=== PATIENT | female | born 1930 | race Caucasian/White ===

== ENCOUNTER 2017-10-05 15:14 | Outpatient (CLI) | payer MEDICARE, BC | END 2017-10-05 15:15 | disposition home or self-care (01) | LOC: BICMAMMO 15:14 | PROVIDERS: ATTEND Family Medicine | DX: Z12.31 Encounter for screening mammogram for malignant neoplasm of breast (principal); Z80.3 Family history of malignant neoplasm of breast | CPT/HCPCS: 77063; 77067 ==

== ENCOUNTER 2018-10-08 10:41 | Outpatient (CLI) | payer MEDICARE, BC ==
--- NOTE | 2018-10-09 15:00 | MMO ---
FILMS COMPARED: The present examination has been compared to prior imaging studies performed at [facility] on 08/28/2013, 09/05/2014 and 06/27/2016. MAMMOGRAM FINDINGS: There are scattered fibroglandular densities. Finding 1: There are vascular calcifications seen in both breasts. Finding 2: There are benign appearing calcifications seen in both breasts. There are no suspicious masses, calcifications or areas of architectural distortion. IMPRESSION: ALL ABOVE FINDINGS ARE BENIGN. A ROUTINE FOLLOW-UP MAMMOGRAM IN 1 YEAR IS RECOMMENDED. ACR BI-RADS Category 2 - Benign finding
== END 2018-10-08 10:42 | disposition home or self-care (01) ==
LOC: BICMAMMO 10:41
PROVIDERS: ATTEND Family Medicine
DX: Z12.31 Encounter for screening mammogram for malignant neoplasm of breast (principal); R92.1 Mammographic calcification found on diagnostic imaging of breast
CPT/HCPCS: 77063; 77067

== ENCOUNTER 2018-10-09 18:55 | Inpatient (IN) | payer MEDICARE, BC ==
[2018-10-09 19:34] LABS: Hemoglobin 11.5 g/dL (12.0-16.0); Mean Corpuscular HGB CONC 33.3 g/dL (32.0-36.0); Mean Corpuscular Hemoglobin 28.7 pg (27.0-31.0); Mean Corpuscular Volume 86.2 fL (78.0-98.0); Mean Platelet Volume 7.6 fL (7.4-10.4); Platelet Count 230 thou/uL (130-400); RBC Distribution Width 12.8 % (11.5-14.5); White Blood Cell (WBC) Count 3.8 thou/uL (4.8-10.8)
[2018-10-09 19:48] LABS: Bilirubin Negative (Negative); Blood, Urine Negative (Negative); Clarity CLOUDY (Clear); Glucose, Urine (Dipstick) 100 mg/dL (Negative); Leukocyte Moderate (Negative); Nitrite Negative (Negative); Protein, Urine (Dipstick) 100 mg/dL (Neg-Trace); RBC/HPF 0-3 HPF (0-3); Specific Gravity, Urine 1.018 (1.002-1.036); WBC/HPF 21-50 HPF (0-3)
[2018-10-09 19:50] LABS: Pathc Cast-AUWi Flag 5.08 (0-2.49)
[2018-10-09 19:51] LABS: ALT (SGPT) 414 U/L (8-55); AST (SGOT) 966 U/L (5-34); Albumin 3.7 g/dL (3.4-4.8); Alkaline Phosphatase 358 U/L (40-150); Anion Gap 15 mmol/L (10-20); BUN (Urea Nitrogen) 18 mg/dL (9.8-20.1); Bilirubin, Total 0.7 mg/dL (0.2-1.2); Calc. Creatinine Clearance 0 mL/min (70-130); Carbon Dioxide 21 mmol/L (23-31); Chloride 100 mmol/L (98-107); Estimated GFR-MDRD 52; Globulin 3.3 g/dL (2.4-3.5); Glucose 305 mg/dL (83-110); Potassium 3.8 mmol/L (3.5-5.1); Sodium 132 mmol/L (136-145)
[2018-10-09 19:54] LABS: Band 23 % (5-11); Lymphocytes 2 % (21-51); MDiff Complete? YES; Metamyelocyte 1 % (0-0); Neutrophil 74 % (42-75); Platelet Morphology Comment Appears Adequate
[2018-10-09 19:56] LABS: Bacteria/HPF 1+ HPF (None Seen); Hyaline Casts/LPF NONE SEEN LPF (0-3 Hyaline); Manual Microscopic Reviewed? No Path Casts Seen; Renal Epithelial None Seen HPF (0-3); Transitional Epithelial 0-3 HPF (0-3)
--- NOTE | 2018-10-09 21:41 | ULT ---
RIGHT UPPER QUADRANT ULTRASOUND 10/09/18 HISTORY: Pain. COMPARISON: None. TECHNIQUE: Utilizing a multihertz transducer, sonographic imaging of the right upper quadrant is performed in th e longitudinal and transverse plane. FINDINGS: The head of the pancreas has a normal echotexture. The remainder of the pancreas is obscured by bowel gas. Main pancreatic duct diameter is 0.3 cm, upper normal. Hepatic parenchyma has a normal echotexture. No hepatic masses or intrahepatic biliary dilatation. Co ntour of the hepatic margin maintained. Right hepatic lobe measures 18.2 cm. In the upper pole of th e right kidney, there is anechoic focus measuring 5.0 x 5.3 x 5.1 cm. Exophytic cyst is favored. No h ydronephrosis. Right kidney measures 4.4 x 4.3 x 11.1 cm. Slightly prominent renal pelvis is noted. N o calyceal dilatation. Common bile duct diameter is 0.9 cm. No sonographic evidence of cholelithiasis , gallbladder wall thickening or pericholecystic fluid. Negative Fernando's sign. IMPRESSION: Prominent common bile. Common bile duct diameter is near the upper limits of normal given this patien t's age. As a conservative measure, MRCP or ERCP can be performed. POS: BAKARI
[2018-10-09] MEDS ORDERED: cefTRIAXone\\ROCEPHIN 2 GM VIAL ONE (21:42)
[2018-10-09] MEDS ORDERED: Acetaminophen 325 MG TAB PO PRN (23:12)
[2018-10-09] MEDS ORDERED: Ondansetron PF 4 MG/2 ML Vial IVP PRN (23:12)
[2018-10-09] MEDS ORDERED: Ondansetron ODT 4 MG TAB PO PRN (23:12)
[2018-10-09 23:17] LABS: Lactic Acid 2.6 mmol/L (0.5-2.2)
[2018-10-09 23:46] VITALS: BMI 23.1
[2018-10-10] MEDS: Sodium Chloride 0.9% 1,000 ML IV SCH ×3 (00:15→20:16)
[2018-10-10] MEDS ORDERED: Morphine 4 MG/ML VIAL SLOW IVP PRN (04:33)
[2018-10-10 05:50] LABS: #Lymphocytes 0.2 thou/uL (1.20-3.40); #Monocytes 0.3 thou/uL (0.11-0.59); #Neutrophils 2.6 thou/uL (1.40-6.50); %Eosinophils 0.4 % (0.0-10.0); %Lymphocytes 6.6 % (21.0-51.0); %Monocytes 9.7 % (0.0-10.0); %Neutrophils 83.3 % (42.0-75.0); Hemoglobin 9.6 g/dL (12.0-16.0); Mean Corpuscular HGB CONC 33.7 g/dL (32.0-36.0); Mean Corpuscular Hemoglobin 29.4 pg (27.0-31.0); Mean Corpuscular Volume 87.3 fL (78.0-98.0); Mean Platelet Volume 7.7 fL (7.4-10.4); Platelet Count 191 thou/uL (130-400); RBC Distribution Width 12.8 % (11.5-14.5); Red Blood Cell (RBC) Count 3.26 mill/uL (4.20-5.40); White Blood Cell (WBC) Count 3.1 thou/uL (4.8-10.8)
[2018-10-10 06:26] LABS: Anion Gap 11 mmol/L (10-20); BUN (Urea Nitrogen) 15 mg/dL (9.8-20.1); Calc. Creatinine Clearance 47 mL/min (70-130); Calcium 8.3 mg/dL (7.8-10.44); Carbon Dioxide 21 mmol/L (23-31); Chloride 104 mmol/L (98-107); Estimated GFR-MDRD 71; Glucose 254 mg/dL (83-110); Potassium 3.8 mmol/L (3.5-5.1); Sodium 132 mmol/L (136-145)
[2018-10-10] MEDS ORDERED: Prevnar 13-Val Conj/PF 0.5 ML SYRINGE IM ONE (09:00)
[2018-10-10] MEDS: Enoxaparin Sodium 40 MG/0.4 ML SYRINGE SC SCH (09:50)
--- NOTE | 2018-10-10 12:37 | PDOC.PN ---
- Subjective Encounter Start Date: 10/10/18 Encounter Start Time: 08:00 Subjective: no abd pain or nausea or vomiting -: feels better -: she thinks its macrobid which caused the whole thing - Objective Resuscitation Status - Order Detail: 10/09/18 23:12 Resuscitation Status Routine Resuscitation Status: FULL: Full Resuscitation MAR Reviewed: Yes Vital Signs & Weight: Vital Signs (12 hours) Temp Pulse Resp BP Pulse Ox 10/10/18 11:30 98.4 F 75 18 121/68 96 10/10/18 08:15 97.7 F 77 12 104/60 96 10/10/18 04:11 99.2 F 86 12 137/64 95 Weight Weight 130 lb 8 oz I&O: 10/09/18 10/10/18 10/11/18 06:59 06:59 06:59 Intake Total 700 Balance 700 Result Diagrams: 10/10/18 05:04 10/10/18 05:04 Additional Labs: Accuchecks 10/09/18 19:02 POC Glucose 292 H Phys Exam - Physical Examination HEENT: PERRLA, moist MMs Neck: no JVD, supple Respiratory: no wheezing, no rales Cardiovascular: RRR, no significant murmur Gastrointestinal: soft, non-tender, no distention, positive bowel sounds no rigidity or guarding Musculoskeletal: no edema, pulses present Neurological: non-focal, moves all 4 limbs Psychiatric: normal affect, A&O x 3 Dx/Plan (1) Acute pancreatitis Code(s): K85.90 - ACUTE PANCREATITIS WITHOUT NECROSIS OR INFECTION, UNSP Status: Suspected Qualifiers: Pancreatitis type: unspecified pancreatitis type Acute pancreatitis complication: no infection or necrosis Qualified Code(s): K85.90 - Acute pancreatitis without necrosis or infection, unspecified (2) Elevated LFTs Code(s): R94.5 - ABNORMAL RESULTS OF LIVER FUNCTION STUDIES Status: Acute (3) UTI (urinary tract infection) Status: Acute Qualifiers: Urinary tract infection type: acute cystitis Hematuria presence: without hematuria Qualified Code(s): N30.00 - Acute cystitis without hematuria (4) Anemia Code(s): D64.9 - ANEMIA, UNSPECIFIED Status: Chronic Qualifiers: Anemia type: unspecified type Qualified Code(s): D64.9 - Anemia, unspecified (5) DM type 2 (diabetes mellitus, type 2) Status: Chronic Qualifiers: Diabetes mellitus water server insulin use: without custodial use Diabetes mellitus complication status: with unspecified complications Qualified Code(s) : E11.8 - Type 2 diabetes mellitus with unspecified complications (6) HTN (hypertension) Code(s): I10 - ESSENTIAL (PRIMARY) HYPERTENSION Status: Chronic Qualifiers: Hypertension type: essential hypertension Qualified Code(s): I10 - Essential (primary) hypertension - Plan await cultures, is on ceftriaxone for uti -: mrcp to r/o choledocholithiasis, t.bili is normal -: abd is benign, last bm was yesterday, no diarrhea -: GI opinion, ?sepsis or med induced elevated lft's/pancreatitis -: iv hydration, will start liq diet after mrcp * . Review of Systems - Medications/Allergies Allergies/Adverse Reactions: Allergies Allergy/AdvReac Type Severity Reaction Status Date / Time Sulfa (Sulfonamide AdvReac Mild Verified 10/09/18 23:41 Antibiotics) Medications: Current Medications Acetaminophen (Tylenol) 650 mg PO Q4H PRN PRN Reason: Headache/Fever/Mild Pain (1-3) Last Admin: 10/10/18 03:03 Dose: 650 mg Amlodipine Besylate (Norvasc) 5 mg PO DAILY [facility] Aspirin (Ecotrin) 81 mg PO DAILY [facility] Enoxaparin Sodium (Lovenox) 40 mg SC 0900 [facility] Last Admin: 10/10/18 09:50 Dose: 40 mg Hydrochlorothiazide (Hydrochlorothiazide) 12.5 mg PO DAILY [facility] Ceftriaxone Sodium 1 gm/ (Sodium Chloride) 100 mls @ 200 mls/hr IVPB Q24HR [facility] Sodium Chloride (Normal Saline 0.9%) 1,000 mls @ 100 mls/hr IV .Q10H [facility] Last Admin: 10/10/18 00:15 Dose: 1,000 mls Morphine Sulfate (Morphine) 2 mg SLOW IVP Q4H PRN PRN Reason: Severe Pain (7-10) Nebivolol (Bystolic) 5 mg PO DAILY [facility] Ondansetron HCl (Zofran Odt) 4 mg PO Q6H PRN PRN Reason: Nausea/Vomiting Ondansetron HCl (Zofran) 4 mg IVP Q6H PRN PRN Reason: Nausea/Vomiting Valsartan (Diovan) 160 mg PO DAILY [facility]
--- NOTE | 2018-10-10 16:11 | CON ---
DATE OF CONSULTATION: 10/10/2018 REASON FOR CONSULTATION: Elevation of liver enzymes. HISTORY: Ms. Knox is an 88-year-old woman, who was admitted to the ER last night with severe weakness. She initially presented to her primary care physician five days ago with symptoms of burning on urination. A culture was sent off and she was prescribed nitrofurantoin. After taking the first dose, she felt bad and had "shakes." She stopped the medication until yesterday when she took the second dose and again she felt very weak. She denies any nausea or vomiting. There is no abdominal pain. There is no altered bowel function. She presented to the ER and was thus admitted after noting that her liver tests are elevated. She denies any prior history of liver disease. She denies any jaundice or dark urine. There is no family history of liver disease either. Currently, she feels fine without any symptoms. PAST MEDICAL HISTORY: 1. Adult onset diabetes. 2. Hypertension. 3. No cardiovascular or lung issue. PAST SURGICAL HISTORY: None. ALLERGIES: SULFA. MEDICATIONS: At home include; 1. Nitrofurantoin. 2. Metformin. 3. Trulicity. 4. Aspirin. 5. Bystolic. SOCIAL HISTORY: The patient is . She has no tobacco or alcohol usage. FAMILY HISTORY: Negative for any known GI problem, liver disease, or GI malignancy. REVIEW OF SYSTEMS: 10-point review of systems did not show any other pertinent positives or negatives. PHYSICAL EXAMINATION: VITAL SIGNS: Temperature is 98.4, blood pressure 121/68, pulse of 75. GENERAL: She is alert and conversant, in no distress. HEENT: Shows anicteric sclerae. Oropharynx clear. NECK: Supple. CV: Shows normal S1 and S2. Regular rate and rhythm. CHEST: Shows a breath sounds. ABDOMEN: Soft and nontender. No distention. No tympany. No palpable mass or organomegaly. She has active bowel sounds. EXTREMITIES: Show no edema. LABORATORY DATA: WBCs 3.1, hemoglobin 9.6, and platelet count of 191. Sodium 132, potassium 3.8, chloride 104, CO2 of 21, creatinine 0.77, bilirubin is 0.7, AST of 966, ALT 414, alkaline phosphatase 358, lipase of 535. Ultrasound showed normal gallbladder and liver. Common bile duct measured 9 mm. Blood culture negative x2 at 24 hours. ASSESSMENT: Marked elevation of liver enzymes with normal bilirubin and mild elevation of alkaline phosphatase. This is most likely from drug-induced hepatitis from nitrofurantoin. There is no clinical symptoms of pancreatitis. I have a very low suspicion for choledocholithiasis as the pattern of her liver profile is not typical for a biliary obstructive process. The patient is doing well clinically otherwise. RECOMMENDATIONS: 1. Nitrofurantoin has been discontinued. 2. Resume diet, no other diagnostic test is indicated at the present time. 3. If her LFT decreases tomorrow, the patient can be discharged home with followup LFT in 2 weeks. Job ID: [id number] [facility] CENTERDerrell
[2018-10-10] MEDS ORDERED: cefTRIAXone\\ROCEPHIN 1 GM in Sodium Chloride 0.9% 100 ML IVPB SCH (20:00)
[2018-10-11] MEDS: Sodium Chloride 0.9% 1,000 ML IV SCH (05:49)
[2018-10-11 06:12] LABS: ALT (SGPT) 458 U/L (8-55); AST (SGOT) 134 U/L (5-34); Albumin 2.9 g/dL (3.4-4.8); Alkaline Phosphatase 215 U/L (40-150); Anion Gap 11 mmol/L (10-20); BUN (Urea Nitrogen) 10 mg/dL (9.8-20.1); Bilirubin, Total 0.3 mg/dL (0.2-1.2); Calc. Creatinine Clearance 48 mL/min (70-130); Calcium 8.2 mg/dL (7.8-10.44); Carbon Dioxide 22 mmol/L (23-31); Chloride 107 mmol/L (98-107); Estimated GFR-MDRD 73; Globulin 2.6 g/dL (2.4-3.5); Glucose 246 mg/dL (83-110); Lipase 166 U/L (8-78); Potassium 3.3 mmol/L (3.5-5.1); Protein, Total 5.5 g/dL (6.0-8.3); Sodium 137 mmol/L (136-145)
--- NOTE | 2018-10-11 07:32 | PRG ---
DATE OF SERVICE: 10/11/2018 SUBJECTIVE: The patient denies any complaint. Surgically, there is no nausea, vomiting, or abdominal pain. She tolerated diet. OBJECTIVE: VITAL SIGNS: Temperature 98.5, blood pressure 137/73, and pulse of 74. GENERAL: She is alert, conversant, no distress. HEENT: Shows anicteric sclerae. CV: Shows normal S1 and S2. Regular rate and rhythm. CHEST: Exam shows breath sound. ABDOMEN: Soft, nontender. No hepatomegaly. She has good bowel sounds. EXTREMITIES: Show no edema. LABORATORY: Her bilirubin is 0.3, AST 134, ALT 458, and alkaline phosphatase 215. Lipase 166. ASSESSMENT: Drug-induced hepatitis from nitrofurantoin, clinically doing well with intact hepatic function. Liver profile is trending down. RECOMMENDATIONS: 1. The patient can be discharged to home from GI standpoint. 2. Followup LFT in 2 weeks with PCP. Job ID: [id number]
[2018-10-11] MEDS ORDERED: Amlodipine 5 MG TAB PO SCH (09:00)
[2018-10-11] MEDS ORDERED: Valsartan 80 MG TAB PO SCH (09:00)
[2018-10-11] MEDS ORDERED: [UNRECOGNIZED DRUG - OTHER] PO SCH (09:00)
[2018-10-11] MEDS ORDERED: AMLODIPINE PO SCH (09:00)
[2018-10-11] MEDS ORDERED: VALSARTAN PO SCH (09:00)
[2018-10-11] MEDS ORDERED: Hydrochlorothiazide 25 MG TAB PO SCH (09:00)
[2018-10-11] MEDS ORDERED: Nebivolol HCl 5 MG TAB PO SCH (09:00)
[2018-10-11] MEDS ORDERED: Aspirin 81 mg Enteric Coated Tablet PO SCH (09:00)
[2018-10-11] MEDS ORDERED: HCTHIAZID PO SCH (09:00)
[2018-10-11] MEDS: Enoxaparin Sodium 40 MG/0.4 ML SYRINGE SC SCH (09:30)
--- NOTE | 2018-10-11 14:12 | PDOC.PN ---
- Subjective Encounter Start Date: 10/11/18 Encounter Start Time: 14:00 Subjective: no nausea or abd pain - Objective Resuscitation Status - Order Detail: 10/09/18 23:12 Resuscitation Status Routine Resuscitation Status: FULL: Full Resuscitation MAR Reviewed: Yes Vital Signs & Weight: Vital Signs (12 hours) Temp Pulse Resp BP BP Pulse Ox 10/11/18 11:17 98.2 F 82 18 122/59 L 94 L 10/11/18 07:22 98.3 F 77 18 157/69 H 91 L 10/11/18 04:27 98.5 F 74 16 137/73 96 Weight Weight 130 lb 8 oz I&O: 10/10/18 10/11/18 10/12/18 06:59 06:59 06:59 Intake Total 700 1700 Balance 700 1700 Result Diagrams: 10/10/18 05:04 10/11/18 05:34 Phys Exam - Physical Examination HEENT: PERRLA, moist MMs Neck: no JVD, supple Respiratory: no wheezing, no rales Cardiovascular: RRR, no significant murmur Gastrointestinal: soft, non-tender, positive bowel sounds Musculoskeletal: no edema, pulses present Neurological: non-focal, moves all 4 limbs Psychiatric: normal affect, A&O x 3 Dx/Plan (1) Acute pancreatitis Code(s): K85.90 - ACUTE PANCREATITIS WITHOUT NECROSIS OR INFECTION, UNSP Status: Suspected Qualifiers: Pancreatitis type: unspecified pancreatitis type Acute pancreatitis complication: no infection or necrosis Qualified Code(s): K85.90 - Acute pancreatitis without necrosis or infection, unspecified (2) Elevated LFTs Code(s): R94.5 - ABNORMAL RESULTS OF LIVER FUNCTION STUDIES Status: Acute (3) UTI (urinary tract infection) Status: Acute Qualifiers: Urinary tract infection type: acute cystitis Hematuria presence: without hematuria Qualified Code(s): N30.00 - Acute cystitis without hematuria (4) Anemia Code(s): D64.9 - ANEMIA, UNSPECIFIED Status: Chronic Qualifiers: Anemia type: unspecified type Qualified Code(s): D64.9 - Anemia, unspecified (5) DM type 2 (diabetes mellitus, type 2) Status: Chronic Qualifiers: Diabetes mellitus spa host insulin use: without spa host use Diabetes mellitus complication status: with unspecified complications Qualified Code(s) : E11.8 - Type 2 diabetes mellitus with unspecified complications (6) HTN (hypertension) Code(s): I10 - ESSENTIAL (PRIMARY) HYPERTENSION Status: Chronic Qualifiers: Hypertension type: essential hypertension Qualified Code(s): I10 - Essential (primary) hypertension - Plan colby cultures are -ve -: drug induced hepatitis with likely mild pancreatitis from macrobid -: will dc on cipro for 3 days for uti prior to arrival -: d/w , will dc home this afternoon -: liver function test in 1 week * . Review of Systems - Medications/Allergies Allergies/Adverse Reactions: Allergies Allergy/AdvReac Type Severity Reaction Status Date / Time Sulfa (Sulfonamide AdvReac Mild Verified 10/09/18 23:41 Antibiotics) Medications: Current Medications Acetaminophen (Tylenol) 650 mg PO Q4H PRN PRN Reason: Headache/Fever/Mild Pain (1-3) Last Admin: 10/10/18 03:03 Dose: 650 mg Amlodipine Besylate (Norvasc) 5 mg PO DAILY [facility] Last Admin: 10/11/18 09:29 Dose: 5 mg Aspirin (Ecotrin) 81 mg PO DAILY [facility] Last Admin: 10/11/18 09:30 Dose: 81 mg Enoxaparin Sodium (Lovenox) 40 mg SC 0900 [facility] Last Admin: 10/11/18 09:30 Dose: 40 mg Hydrochlorothiazide (Hydrochlorothiazide) 12.5 mg PO DAILY [facility] Last Admin: 10/11/18 09:30 Dose: 12.5 mg Ceftriaxone Sodium 1 gm/ (Sodium Chloride) 100 mls @ 200 mls/hr IVPB Q24HR [facility] Last Admin: 10/10/18 20:15 Dose: 100 mls Sodium Chloride (Normal Saline 0.9%) 1,000 mls @ 100 mls/hr IV .Q10H [facility] Last Admin: 10/11/18 05:49 Dose: 1,000 mls Morphine Sulfate (Morphine) 2 mg SLOW IVP Q4H PRN PRN Reason: Severe Pain (7-10) Nebivolol (Bystolic) 5 mg PO DAILY [facility] Last Admin: 10/11/18 09:29 Dose: 5 mg Ondansetron HCl (Zofran Odt) 4 mg PO Q6H PRN PRN Reason: Nausea/Vomiting Ondansetron HCl (Zofran) 4 mg IVP Q6H PRN PRN Reason: Nausea/Vomiting Valsartan (Diovan) 160 mg PO DAILY [facility] Last Admin: 10/11/18 09:29 Dose: 160 mg
[2018-10-11 16:01] VITALS: BP 163/68; TEMP 98.1
--- NOTE | 2018-10-11 22:19 | DIS ---
DATE OF ADMISSION: 10/09/2018 DATE OF DISCHARGE: 10/11/2018 DISCHARGE DISPOSITION: Home. PRIMARY DISCHARGE DIAGNOSES: 1. 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 2. Urinary tract infection. 3. Chronic anemia. 4. Diabetes mellitus type 2. 5. Hypertension. PROCEDURES DONE DURING HOSPITALIZATION: Right upper quadrant ultrasound done, showed prominent common bile duct measuring 0.9 cm. Blood cultures x2, no growth. Urine culture, no growth. H and H are 10 and 28, platelet count is 191. Total bilirubin 0.3, AST was 966 on the day of admission with discharge numbers of 134, ALT was 414 on the day of admission with discharge numbers of 458, lipase 535, BUN 10, creatinine 0.7. 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 Mckee for Gastroenterology. DISCHARGE MEDICATIONS: 1. Amlodipine with valsartan and hydrochlorothiazide 5/160/12.5 mg p.o. daily. 2. Aspirin 81 mg p.o. daily. 3. Trulicity once weekly. 4. Metformin 1000 mg twice daily. 5. Bystolic 5 mg daily. 6. Pravastatin 80 mg p.o. daily. 7. Ciprofloxacin 500 mg p.o. twice daily for another three days. ALLERGIES: ALLERGIC TO SULFA AND LIKELY MACROBID. DISCHARGE PLAN: The patient to follow up with primary care physician in 1 week. The patient also needs a comprehensive metabolic panel to be done in a week. BRIEF COURSE DURING HOSPITALIZATION: The patient initially came to ER with complaints of generalized weakness. She was diagnosed with UTI and was placed on Macrobid. She had taken 2 tablets of it and was not feeling right. On arrival, the patient had elevated LFTs. She also had right upper quadrant ultrasound done, which showed common bile duct to be 0.9 cm. The repeat hepatic panel showed liver enzymes to be trending downwards. In view of this, she was diagnosed with drug-induced hepatitis with mild pancreatitis. Her abdomen was benign with no rigidity or guarding. There was no abdominal pain. She was tolerating oral solid diet all through her stay here. She was evaluated by Dr. Mckee for Gastroenterology as well. Prior to discharge, she is ambulating and eating well. She needs to have a repeat comprehensive metabolic panel to be done on the and the results will be faxed to Dr. Mckee. Her primary care physician will be on vacation next week, and Dr. Mckee will follow up with the results in his office. She is otherwise hemodynamically stable and will be shortly discharged home. She has been cleared by Dr. Mckee for discharge. Please see a [id number] documentation for the day [facility] Job ID: [id number]
== END 2018-10-11 14:45 | disposition home or self-care (01) | DRG 441 ==
LOC: ERS 18:55 → SURG B 21:46
PROVIDERS: ADMIT Hospitalist; ATTEND Hospitalist
DX: K71.2 Toxic liver disease with acute hepatitis (principal); K85.30 Drug induced acute pancreatitis without necrosis or infection; N39.0 Urinary tract infection, site not specified; D62 Acute posthemorrhagic anemia; T37.8X5A Adverse effect of other specified systemic anti-infectives and antiparasitics, initial encounter; E11.9 Type 2 diabetes mellitus without complications; I10 Essential (primary) hypertension; Z79.84 Long term (current) use of oral hypoglycemic drugs; Z79.82 Long term (current) use of aspirin; Z88.2 Allergy status to sulfonamides
CPT/HCPCS: 36415; 36416; 51701; 76705; 80048; 80053; 81003; 81015; 83605; 83690; 84484; 85025; 87040; 87086; 90471; 90670; 93005; 96361; 96365; A4353; G0009; J0696; J1650; J7050

== ENCOUNTER 2019-10-10 14:24 | Outpatient (CLI) | payer MEDICARE, BC ==
--- NOTE | 2019-10-10 15:40 | MMO ---
Bilateral MAMMO Bilat Screen [facility]SHAUN. CLINICAL HISTORY: Patient is 89 years old and is seen for screening. The patient has the following family history of breast cancer: sister, 70. The patient has no personal history of cancer. VIEWS: The views performed were: bilateral craniocaudal with tomosynthesis and bilateral mediolateral oblique with tomosynthesis. FILMS COMPARED: The present examination has been compared to prior imaging studies performed at [facility] on 10/05/2017 and 10/08/2018, and at [facility] on 06/27/2016. This study has been interpreted with the assistance of computer-aided detection. MAMMOGRAM FINDINGS: There are scattered fibroglandular densities. Benign calcifications are noted bilaterally. There are no suspicious masses, suspicious calcifications, or new areas of architectural distortion. IMPRESSION: THERE IS NO MAMMOGRAPHIC EVIDENCE OF MALIGNANCY. A ROUTINE FOLLOW-UP MAMMOGRAM IN 1 YEAR IS RECOMMENDED. THE RESULTS OF THIS EXAM WERE SENT TO THE PATIENT. ACR BI-RADS Category 2 - Benign finding MAMMOGRAPHY NOTE: 1. A negative mammogram report should not delay a biopsy if a dominant of clinically suspicious mass is present. 2. Approximately 10% to 15% of breast cancers are not detected by mammography. 3. Adenosis and dense breasts may obscure an underlying neoplasm. Reported by: ALYSIA WILLIAMSON MD Electonically Signed: [id number]
== END 2019-10-10 14:25 | disposition home or self-care (01) ==
LOC: BICMAMMO 14:24
PROVIDERS: ATTEND Family Medicine
DX: Z12.31 Encounter for screening mammogram for malignant neoplasm of breast (principal); Z80.3 Family history of malignant neoplasm of breast
CPT/HCPCS: 77063; 77067